=== PATIENT | female | born 1970 | race African-American/Black ===

== ENCOUNTER 2022-01-18 21:13 | Emergency (ER) | payer BC ==
[2022-01-18 21:18] VITALS: BP 114/78; PULSE 64; RESP 18; TEMP 97.4; BMI 26.7
[2022-01-18] MEDS ORDERED: KETOROLAC TROMETHAMINE 30 MG/1 ML VIAL IM ONE (21:51)
[2022-01-18] MEDS ORDERED: LIDOCAINE 5% TOPICAL PATCH TP ONE (21:51)
[2022-01-18] MEDS ORDERED: METHOCARBAMOL 500 MG TABLET PO ONE (21:51)
[2022-01-18] MEDS ORDERED: KETOROLAC TROMETHAMINE 30 MG/1 ML VIAL ONE (21:55)
[2022-01-18] MEDS ORDERED: LIDOCAINE 5% TOPICAL PATCH ONE (21:55)
[2022-01-18] MEDS ORDERED: METHOCARBAMOL 500 MG TABLET ONE (21:55)
[2022-01-18 22:36] LABS: EPI CELLS 20 /uL (0-25.1); HYALINE CASTS 1 /uL (0-3.1); URINE APPEARANCE CLEAR; URINE BACTERIA 1052 /uL (0-1359); URINE BILIRUBIN NEGATIVE (NEGATIVE); URINE COLOR YELLOW; URINE GLUCOSE (UA) NEGATIVE (NEGATIVE); URINE KETONE TRACE (NEGATIVE); URINE LEUK ESTERASE TRACE (NEGATIVE); URINE NITRITE NEGATIVE (NEGATIVE); URINE PROTEIN NEGATIVE (NEGATIVE); URINE RBC 6 /uL (0-23.9); URINE WBC 10 /uL (0-25.8)
[2022-01-18 22:46] LABS: HCG,QUALITATIVE URINE NEGATIVE
== END 2022-01-18 22:37 | disposition home or self-care (01) ==
LOC: JERFT 21:13
PROC: 3E0233Z Introduction of Anti-inflammatory into Muscle, Percutaneous Approach (ICD-10-PCS; principal; 2022-01-18)
DX: M54.50 Low back pain, unspecified (principal)
CPT/HCPCS: 81003; 84703; 87086; 99284-25